=== PATIENT | male | born 1975 | race Caucasian/White ===

== ENCOUNTER 2024-11-25 17:45 | Emergency (ER) | payer OTHER ==
[2024-11-25] MEDS: Ketorolac 30 MG/ML SDV IM ONE (18:20)
[2024-11-25] MEDS: Cephalexin 250 MG Cap PO ONE (18:41)
[2024-11-25] MEDS: Diphtheria,Pertussis(Acell),Tetanus Vaccine 0.5 ML Syringe IM ONE (18:42)
== END 2024-11-25 18:58 | disposition home or self-care (01) ==
LOC: KA.ED 17:45
DX: S61.011A Laceration without foreign body of right thumb without damage to nail, initial encounter (principal); Z23 Encounter for immunization; Z88.0 Allergy status to penicillin; W22.8XXA Striking against or struck by other objects, initial encounter
CPT/HCPCS: 73140-F5; 90471; 90715; 96372; 99283-25; A9270-GY; J1885